=== PATIENT | female | born 1965 | race Caucasian/White ===

== ENCOUNTER → 2021-09-03 | Outpatient (CLI) | payer OTHER ==
[~2021-09-03] MED LIST: BACTRIM DS 8001 TA1 PO; BENZONATATE100 MG PO; CLONAZEPAM1 MG PO; FLEXERIL10 MG PO; FLEXERIL5 MG PO; FLUVOXAMINE; LAMICTAL1 TAB PO; LUVOX CR150 MG PO; MOTRIN800 MG PO; NAPROSYN500 MG PO; NORCO 325 MG-51 TAB PO; OMEPRAZOLE CAP 20M; PARAFON FORTE500 MG PO; PREDNICOT20 MG PO; RISPERDAL0.5 MG PO; TORADOL10 MG PO; VICODIN 5/500 505 MG PO; VICODIN 500 MG-1 TAB PO; VOLTAREN50 M1 PO
== END | disposition home or self-care (01) ==
LOC: COVID19 15:14
PROVIDERS: ATTEND Family Medicine
DX: Z11.52 Encounter for screening for COVID-19 (principal)

== ENCOUNTER 2021-09-05 16:21 | Emergency (ER) | payer OTHER | END 2021-09-05 16:50 | disposition home or self-care (01) | LOC: ED 16:21 | DX: S93.401A Sprain of unspecified ligament of right ankle, initial encounter (principal); Z88.1 Allergy status to other antibiotic agents; Z88.8 Allergy status to other drugs, medicaments and biological substances; Z79.899 Other long term (current) drug therapy; W10.8XXA Fall (on) (from) other stairs and steps, initial encounter; Y93.89 Activity, other specified; Y92.89 Other specified places as the place of occurrence of the external cause; Y99.8 Other external cause status ==

== ENCOUNTER 2024-03-07 19:21 | Emergency (ER) | payer OTHER ==
[~2024-03-07] VITALS: Ht 170.1 cm; Wt 88.9 kg
[2024-03-07] MEDS ORDERED: IOHEXOL 300 MG/ML 100 ML VIAL IV ONE (20:15)
[2024-03-07 20:25] LABS: BASO # 0.1 10*3/uL (0.0-0.1); BASO % 0.5 % (0.0-1.0); EOS % 0.4 % (1.0-4.0); HEMATOCRIT 36.3 % (37.0-47.0); LYMPH # 1.2 10*3/uL (1.3-4.4); LYMPH % 11.9 % (27.0-41.0); MEAN CELL VOLUME 91.4 fl (81.0-99.0); MEAN CORPUSCULAR HGB CONC 32.8 g/dl (33.0-37.0); MEAN PLATELET VOLUME 9.5 fl (9.6-12.3); MONO # 0.8 10*3/uL (0.1-1.0); MONO % 8.2 % (3.0-9.0); NEUT # 8.1 10*3/uL (2.3-7.9); NEUT % 78.8 % (47.0-73.0); PLATELET COUNT AUTOMATED 257 10*3/uL (130-400); RED BLOOD COUNT 3.97 10*6/uL (4.10-5.10); RED CELL DISTRI WIDTH 13.5 % (0-14.5); WHITE BLOOD COUNT 10.3 10*3/uL (4.8-10.8)
[2024-03-07 20:45] LABS: BUN 8 mg/dl (9-23); CHLORIDE 105 mmol/L (98-107); POTASSIUM 3.7 mmol/L (3.4-5.1)
[2024-03-07] MEDS ORDERED: IOHEXOL 300 MG/ML 100 ML VIAL ONE (20:56)
[2024-03-07] MEDS ORDERED: Piperacillin Sodium/Tazobact 50 ML IV ONE (22:20)
== END 2024-03-08 02:03 | disposition short-term general hospital (02) ==
LOC: ED 19:21
PROVIDERS: Emergency Medicine
DX: L03.221 Cellulitis of neck (principal); L76.34 Postprocedural seroma of skin and subcutaneous tissue following other procedure; F41.9 Anxiety disorder, unspecified; F31.9 Bipolar disorder, unspecified; Z88.1 Allergy status to other antibiotic agents; Z88.8 Allergy status to other drugs, medicaments and biological substances; Z98.890 Other specified postprocedural states; Y84.8 Other medical procedures as the cause of abnormal reaction of the patient, or of later complication, without mention of misadventure at the time of the procedure; Y92.89 Other specified places as the place of occurrence of the external cause

== ENCOUNTER 2025-03-25 18:20 | Emergency (ER) | payer OTHER ==
[~2025-03-25] VITALS: Ht 170.1 cm; Wt 93.4 kg
[2025-03-25] MEDS ORDERED: IBUPROFEN 600 MG TAB PO ONE (19:45)
[2025-03-25 20:04] LABS: BASO # 0.0 10*3/uL (0.0-0.1); BASO % 0.6 % (0.0-1.0); EOS # 0.0 10*3/uL (0.0-0.4); EOS % 0.4 % (1.0-4.0); MEAN CELL VOLUME 87.4 fl (81.0-99.0); MEAN CORPUSCULAR HGB 28.7 pg (27.0-31.0); MEAN PLATELET VOLUME 9.9 fl (9.6-12.3); MONO # 0.5 10*3/uL (0.1-1.0); MONO % 7.9 % (3.0-9.0); NEUT # 4.4 10*3/uL (2.3-7.9); NEUT % 65.8 % (47.0-73.0); NUCLEATED RED BLOOD CELL 0.0 % (0.0-0.0); NUCLEATED RED BLOOD CELL 0.0 10*3/uL (0.0-0.0); PLATELET COUNT AUTOMATED 277 10*3/uL (130-400); RED CELL DISTRI WIDTH 13.1 % (0-14.5)
[2025-03-25 20:22] LABS: BUN 11 mg/dl (9-23)
[2025-03-25] MEDS ORDERED: NAPROSYN500 MG PO (21:54)
== END 2025-03-25 22:20 | disposition home or self-care (01) ==
LOC: ED 18:20
PROVIDERS: Nurse Practitioner Family
DX: S86.911A Strain of unspecified muscle(s) and tendon(s) at lower leg level, right leg, initial encounter (principal); M54.41 Lumbago with sciatica, right side; Z88.1 Allergy status to other antibiotic agents; Z88.8 Allergy status to other drugs, medicaments and biological substances; Z79.899 Other long term (current) drug therapy; X58.XXXA Exposure to other specified factors, initial encounter; Y93.89 Activity, other specified; Y92.89 Other specified places as the place of occurrence of the external cause; Y99.8 Other external cause status